=== PATIENT | female | born 1980 | race Caucasian/White ===

== ENCOUNTER → 2022-01-13 | Outpatient (CLI) | payer BC | LOC: MC.RAD 07:40 | DX: Z12.31 Encounter for screening mammogram for malignant neoplasm of breast (principal) ==

== ENCOUNTER → 2023-03-11 | Outpatient (CLI) | payer BC | LOC: MC.RAD 09:46 | DX: N64.59 Other signs and symptoms in breast (principal); R92.2 Inconclusive mammogram ==